=== PATIENT | female | born 1995 | race Two or more races ===

== ENCOUNTER → 2017-06-02 | Outpatient (REF) | payer BC, OTHER ==
[2017-06-02 22:05] LABS: MICROSCOPIC INDICATED? MAN YES (NO)
[2017-06-02 22:23] LABS: SQUAMOUS EPITHELIAL CELL URINE SMALL AMOUNT /hpf (SMALL AMT)
[2017-06-02 22:24] LABS: BACTERIA, URINE NONE SEEN; HYALINE CAST, URINE NONE SEEN /lpf (0-1); MICROSCOPIC EXAM PERFORMED
== END ==
LOC: M LAB REF 09:45
PROVIDERS: ATTEND Physician Assistant
DX: R30.0 Dysuria (principal)

== ENCOUNTER → 2017-08-31 | Outpatient (REF) | payer OTHER | LOC: M LAB REF 14:36 | PROVIDERS: ATTEND Physician Assistant Medical | DX: J02.9 Acute pharyngitis, unspecified (principal) ==

== ENCOUNTER → 2019-06-04 | Outpatient (REF) | payer OTHER | LOC: M LAB REF 15:29 | PROVIDERS: ATTEND Physician Assistant Medical | DX: R30.0 Dysuria (principal) ==

== ENCOUNTER → 2023-08-27 | Outpatient (CLI) | payer BC, OTHER ==
[~2023-08-27] MED LIST: ACET325C5 PO; ASPI81CH33 PO; HUMU70IN SC; IBUP80TA PO; INSU100I14; LABE100T6 PO; LABE20TAB PO; LABE300T3 PO; LEXA1TAB PO; METF-838 PO; METF10004 PO; NIFE1TAB52 PO; PERCOCET PO; PRENTAB9 PO; PROG1CAP9 PO
[2023-08-27 16:13] LABS: HEMOGLOBIN A1c 6.4 % (4.0-6.0)
[2023-08-27 16:20] LABS: THYROID STIMULATING HORMONE 1.135 uIU/ML (0.55-4.78)
[2023-08-27 16:21] LABS: FREE T4 1.07 NG/DL (0.89-1.76)
== END ==
LOC: M PLALAB 14:29
PROVIDERS: ATTEND Nurse Practitioner Family
DX: N83.202 Unspecified ovarian cyst, left side (principal); N83.201 Unspecified ovarian cyst, right side

== ENCOUNTER 2024-04-03 20:52 | Emergency (ER) | payer BC, OTHER ==
[~2024-04-03] VITALS: Ht 180.3 cm; Wt 125.0 kg
[2024-04-03 22:18] LABS: BASO # 0.1 10^3/uL (0.0-0.2); BASO % 0.9 % (0.0-1.0); EOS # 1.2 10^3/uL (0.0-0.5); EOS % 7.6 % (0.0-3.0); HEMATOCRIT 36.3 % (36.0-47.0); HEMOGLOBIN 11.9 g/dl (12.0-15.5); LYMPH # 2.8 10^3/uL (1.5-5.0); LYMPH % 18.6 % (24.0-44.0); MEAN CORPUSCULAR HEMOGLOBIN 28.7 pg (27.0-33.0); MEAN CORPUSCULAR HGB CONC 32.8 g/dl (32.0-36.5); MEAN CORPUSCULAR VOLUME 87.5 fl (80.0-96.0); MONO # 1.3 10^3/uL (0.0-0.8); MONO % 8.4 % (2.0-8.0); NEUTROPHILS # 9.8 10^3/uL (1.5-8.5); PLATELET COUNT, AUTOMATED 422 10^3/uL (150-450); RED BLOOD COUNT 4.15 10^6/uL (4.00-5.40); WHITE BLOOD COUNT 15.2 10^3/uL (4.0-10.0)
[2024-04-03 22:39] LABS: LIPASE 396 U/L (12-53)
[2024-04-03 22:41] LABS: ALBUMIN 3.2 G/DL (3.2-5.2); ALKALINE PHOSPHATASE 105 U/L (46-116); ALT/SGPT 17 U/L (7.0-40); AST/SGOT 13 U/L (<34); BILIRUBIN,DIRECT 0.1 MG/DL (<0.4); BILIRUBIN,TOTAL 0.3 MG/DL (0.3-1.2); BLOOD UREA NITROGEN 6 MG/DL (9-23); CALCIUM LEVEL 8.8 MG/DL (8.5-10.1); CARBON DIOXIDE LEVEL 28 MMOL/L (20-31); CHLORIDE LEVEL 107 MMOL/L (98-107); CREATININE FOR GFR 0.72 MG/DL (0.55-1.30); GLOMERULAR FILTRATION RATE > 60.0 (>60); GLUCOSE, FASTING 144 MG/DL (60-100); POTASSIUM SERUM 3.5 MMOL/L (3.5-5.1); SODIUM LEVEL 141 MMOL/L (136-145); TOTAL PROTEIN 6.5 G/DL (5.7-8.2)
[2024-04-03 22:47] LABS: HCG, SERUM QUALITATIVE NEGATIVE (NEGATIVE)
[2024-04-04] MEDS ORDERED: ISOVUE-370 76% 100ML VIAL As Ordered ONE (03:30)
[2024-04-04] MEDS: NS 1,000 ML IV ONE (03:32)
[2024-04-04 05:49] LABS: AMYLASE 56 U/L (30-118)
[2024-04-04] MEDS ORDERED: MACR100C43 PO (05:50)
[2024-04-04] MEDS ORDERED: ONDA-282 PO (06:05)
[2024-04-04] MEDS ORDERED: HYDR-3713 PO (06:05)
[2024-04-04] MEDS: NITROFURANTOIN (MACROBID) 100 MG CAP PO ONE (06:18)
[2024-04-04] MEDS: ANEXSIA, NORCO 7.5MG/325MG TABLET(HYDROCODONE/APAP) PO ONE (06:18)
[2024-04-04 06:20] VITALS: BP 132/80; TEMP 98.2; O2SAT 99
[2024-04-09] MEDS ORDERED: CEFD300C PO (09:32)
[2024-04-11] MEDS ORDERED: LOSA25TA13 PO (14:13)
[2024-04-11] MEDS ORDERED: BUSP1TAB PO (14:13)
[2024-04-11] MEDS ORDERED: LEXA1TAB PO (14:13)
[2024-04-11] MEDS ORDERED: GLIP5TAB20 PO (14:13)
[2024-04-11] MEDS ORDERED: METO1TAB32 PO (14:13)
[2024-04-11] MEDS ORDERED: ETON68IM SC (14:13)
== END 2024-04-04 06:27 | disposition home or self-care (01) ==
LOC: M ED 20:52
DX: N39.0 Urinary tract infection, site not specified (principal); K86.1 Other chronic pancreatitis; R10.9 Unspecified abdominal pain; E11.9 Type 2 diabetes mellitus without complications; I10 Essential (primary) hypertension; F32.A Depression, unspecified; Z79.1 Long term (current) use of non-steroidal anti-inflammatories (NSAID); Z79.84 Long term (current) use of oral hypoglycemic drugs; Z79.810 Long term (current) use of selective estrogen receptor modulators (SERMs); Z79.899 Other long term (current) drug therapy
CPT/HCPCS: 74177; 80048; 80076; 81001; 82150; 83690; 84703; 85025; 87088; 87186; 96360; 96361; 99284; Q9967

== ENCOUNTER 2024-07-27 09:56 | Day surgery (SDC) | payer BC ==
[~2024-07-27] VITALS: Ht 180.3 cm; Wt 128.8 kg
[~2024-07-27 09:56] MED LIST changes: +BUSP1TAB PO; +CEFD300C PO; +ETON68IM SC; +GLIP5TAB20 PO; +HUMU1INJ2 SQ; +HYDR-3713 PO; +LANTINJ4 SC; +LANTINJ4 SQ; +LOSA25TA13 PO; +MACR100C43 PO; +METO1TAB32 PO; +ONDA-282 PO; +PRED10TA2 PO
[2024-07-27] MEDS ORDERED: ONDANSETRON 4MG 2ML VIAL As Ordered ONE (10:01)
[2024-07-27] MEDS ORDERED: propofoL 200 MG/20 ML VIAL As Ordered ONE (10:01)
[2024-07-27] MEDS ORDERED: ROCURONIUM BROMIDE 50MG/5ML VIAL As Ordered ONE (10:01)
[2024-07-27] MEDS ORDERED: fentaNYL 100 MCG/2 ML INJECTION As Ordered ONE (10:01)
[2024-07-27] MEDS ORDERED: MIDAZOLAM INJ 2MG/2ML VIAL As Ordered ONE (10:01)
[2024-07-27] MEDS ORDERED: LIDOCAINE 2% 100MG/5ML SDV (FOR ANES.) As Ordered ONE (10:01)
[2024-07-27] MEDS ORDERED: dexmedeTOMIDine (4MCG/ML)200MCG/50ML BTL (PRECEDEX) As Ordered ONE (10:01)
[2024-07-27 11:35] LABS: HEMATOCRIT 37.3 % (36.0-47.0); HEMOGLOBIN 12.2 g/dl (12.0-15.5); MEAN CORPUSCULAR HEMOGLOBIN 28.9 pg (27.0-33.0); MEAN CORPUSCULAR HGB CONC 32.7 g/dl (32.0-36.5); MEAN CORPUSCULAR VOLUME 88.4 fl (80.0-96.0); PLATELET COUNT, AUTOMATED 359 10^3/uL (150-450); RED BLOOD COUNT 4.22 10^6/uL (4.00-5.40); WHITE BLOOD COUNT 10.3 10^3/uL (4.0-10.0)
[2024-07-27] MEDS: NS 1,000 ML IV SCH (11:42)
[2024-07-27] MEDS ORDERED: SEVOFLURANE INHAL SOLN 250 ML BTL As Ordered ONE (12:02)
[2024-07-27] MEDS ORDERED: KETOROLAC 60MG 2ML VIAL As Ordered ONE (12:56)
[2024-07-27] MEDS ORDERED: SUGAMMADEX SODIUM 500 MG/5 ML VIAL (BRIDION) As Ordered ONE (13:01)
[2024-07-27] MEDS ORDERED: ACETAMINOPHEN 1000MG 100ML IV BAG As Ordered ONE (13:01)
[2024-07-27] MEDS ORDERED: fentaNYL 100 MCG/2 ML INJECTION IV PRN (14:05)
[2024-07-27] MEDS ORDERED: ONDANSETRON 4MG 2ML VIAL IV PRN (14:05)
[2024-07-27] MEDS ORDERED: OXYC1TAB23 PO (14:05)
[2024-07-27] MEDS ORDERED: NS 1,000 ML IV SCH (14:05)
[2024-07-27] MEDS ORDERED: IBUP-1022 PO (14:05)
[2024-07-27] MEDS ORDERED: HYDROMORPHONE HCL 0.5 MG/ 0.5 ML SYRINGE IV PRN (14:05)
[2024-07-27] MEDS: oxyCODONE 5MG TAB PO PRN (14:49)
[2024-07-27 15:40] VITALS: BP 142/82; TEMP 97.8; O2SAT 97
== END 2024-07-27 15:47 | disposition home or self-care (01) ==
LOC: M SDC 09:56
PROVIDERS: ATTEND Specialist
DX: D27.0 Benign neoplasm of right ovary (principal); E11.9 Type 2 diabetes mellitus without complications; R06.83 Snoring; Z79.899 Other long term (current) drug therapy
CPT/HCPCS: 36415; 58662; 81025; 85027; 88305; J0131; J0665; J1885; J2250; J2405; J3010

== ENCOUNTER → 2025-08-03 | Outpatient (REF) | payer BC, OTHER ==
[~2025-08-03] MED LIST changes: +GLIP-318 PO; -GLIP5TAB20 PO; +IBUP600T42 PO; +OXYC1TAB23 PO
[2025-08-05 14:22] LABS: HPV APTIMA Not Detected (Not Detected)
== END ==
LOC: M SFHCWAGY 15:06
PROVIDERS: ATTEND Specialist
DX: Z12.4 Encounter for screening for malignant neoplasm of cervix (principal)
CPT/HCPCS: 87624; G0123